=== PATIENT | female | born 1975 | race Caucasian/White ===

== ENCOUNTER 2020-06-04 08:06 | Day surgery (SDC) | payer SELFPAY ==
[~2020-06-04] VITALS: Ht 165 cm; Wt 49.0 kg
[2020-06-04] MEDS ORDERED: LIDOCAINE 1% INJ 20 ML 20 ML VIAL ONE (08:11)
[2020-06-04 08:24] VITALS: BP 112/70
--- NOTE | 2020-06-04 09:41 | Cardiac Procedure Note-CS/ASA ---
Pre-Procedure Note Pre-Op Procedure Note H&P Reviewed The H&P was reviewed, patient examined and no changes noted. Date H&P Reviewed: Jun 04, 2020 Time H&P Reviewed: 09:30 Conscious Sedation Pre-Proced Time 09:30 ASA Score 2 For ASA 3 and 4: Consider anesthesia and medical clearance. Also, for patients with a history of failed moderate sedation consider anesthesia. Airway Lungs Heart ASA score ASA 1: a normal healthy patient ASA 2: a patient with a mild systemic disease (mid diabetes, controlled hypertension, obesity ASA 3: a patient with a severe systemic disease that limits activity (angina, COPD, prior Myocardial infarction) ASA 4: a patient with an incapacitating disease that is a constant threat to life (CHF, renal failure) ASA 5: a moribund patient not expected to survive 24 hrs. (ruptured aneurysm) ASA 6: a declared brain- patient whose organs are being harvested. For emergent operations, add the letter E after the classification Mallampati Classification Grade 1 Sedation Plan Analgesia, Amnesia, Plan communicated to team members, Discussed options with patient/fam, Discussed risks with patient/fam The patient is an appropriate candidate to undergo the planned procedure, sedation, and anesthesia. The patient immediately re-assessed prior to indication. TAYLOR MCGARRY MD FACP FAC CCDS Jun 04, 2020 09:41
--- NOTE | 2020-06-04 10:49 | OPERATIVE REPORT ---
DATE OF SERVICE: 06/04/2020 PREOPERATIVE DIAGNOSIS: Palpitations. POSTOPERATIVE DIAGNOSIS: Palpitations. PROCEDURE: Implantable loop recorder implantation. INDICATIONS: The patient is a 44-year-old lady, who has been experiencing palpitations that are quite bothersome to her, but are infrequent. Implantable loop recorder implantation was carried out after having obtained an informed consent. DESCRIPTION OF PROCEDURE: She was brought to the heart center. The left prepectoral area was prepared and draped in the usual sterile fashion. Lidocaine 1% was used for local anesthesia. The tools provided with the [employer] implantable Reveal LINQ device were used to make a pocket anterior to the fourth intercostal space into which the device was placed and the wound edges were closed using Dermabond and Steri-Strips. She tolerated the procedure well. The device is a Medtronic Reveal LINQ with serial# [id number]. Job ID: [id number] DocumentID: [id number] Dictated Date: 06/04/2020 09:47:38 Golf Course Starter Date: 06/04/2020 10:49:08 Dictated By: TAYLOR MCGARRY MD, MA, FACP, FACC,
== END 2020-06-04 09:55 | disposition home or self-care (01) ==
LOC: CATH 08:06
PROVIDERS: ATTEND Internal Medicine Cardiovascular Disease
DX: R00.2 Palpitations (principal); R07.89 Other chest pain; R94.31 Abnormal electrocardiogram [ECG] [EKG]; Z79.82 Long term (current) use of aspirin; F17.210 Nicotine dependence, cigarettes, uncomplicated
CPT/HCPCS: 33285; C1764

== ENCOUNTER → 2020-06-25 | Outpatient (CLI) | payer OTHER ==
[~2020-06-25] VITALS: Ht 165 cm; Wt 49.0 kg
[~2020-06-25] MED LIST: REGADENOSON 0.4 MG/5 ML SYR (LEXISCAN) IV ONE
[2020-06-25] MEDS: CATHETER FLUSH 10 ML SYR IV PRN ×2 (11:16→12:59)
[2020-06-25 12:58] VITALS: BP 94/55
--- NOTE | 2020-06-26 17:33 | STRESS TEST ---
DATE OF SERVICE: 06/25/2020 RESTING AND POST REGADENOSON TECHNETIUM-99M TETROFOSMIN SPECT CT IMAGING ORDERING PHYSICIAN: Dr. Arguello. PRIMARY PHYSICIAN: ÁNGEL Reynolds. CLINICAL DIAGNOSIS: Chest discomfort. Baseline images were carried out after injection of 10.07 mCi of technetium-99m Tetrofosmin. This was followed by 0.4 mg regadenoson and 29.7 mCi of technetium-99m Tetrofosmin for stress imaging. The electrocardiogram showed sinus rhythm at baseline. It did not change significantly with regadenoson infusion. The patient tolerated the procedure well. Review of images at rest and following stress does not indicate any evidence of myocardial ischemia or infarction. Gated images show normal global left ventricular systolic function with normal regional wall motion. Left ventricular ejection fraction is calculated to be 54%. Left ventricular end diastolic volume is 71 mL. TID is absent (1.09). CONCLUSIONS: 1. No evidence of any significant myocardial ischemia or infarction on this study. 2. Normal regional wall motion. 3. Normal global left ventricular systolic function with a calculated ejection fraction of 54%. Job ID: [id number] DocumentID: [id number] Dictated Date: 06/26/2020 15:56:39 Dog Boarder Date: 06/26/2020 17:32:24 Dictated By: TAYLOR ARGUELLO MD, MA, FACP, FACC,
== END ==
LOC: CARD 10:09
PROVIDERS: ATTEND Internal Medicine Cardiovascular Disease
DX: R07.89 Other chest pain (principal); R00.2 Palpitations; Z72.0 Tobacco use
CPT/HCPCS: 78452; 93017; 93306; A9502

== ENCOUNTER → 2023-01-29 | Outpatient (CLI) | payer MEDICAID, OTHER ==
[~2023-01-29] MED LIST changes: +CATHETER FLUSH 10 ML SYR IVP PRN
[2023-01-29 09:47] VITALS: BP 94/75
--- NOTE | 2023-01-30 22:15 | STRESS TEST ---
DATE OF SERVICE: 01/29/2023 RESTING AND POST REGADENOSON TECHNETIUM-99M TETROFOSMIN SPECT CT IMAGING CLINICAL DIAGNOSIS: Near syncope. Baseline images were carried out after injection of 10.37 mCi of technetium-99m tetrofosmin. This was followed by 0.4 mg regadenoson and 30 mCi of technetium-99m tetrofosmin for stress imaging. The electrocardiogram showed sinus rhythm at baseline. It did not change significantly with regadenoson infusion. The patient tolerated the procedure well. Review of images at rest and following stress does not indicate any significant perfusion defects consistent with myocardial ischemia or infarction. Gated images show normal global left ventricular systolic function with normal regional wall motion. Left ventricular ejection fraction calculated to be 56%. CONCLUSIONS: 1. No evidence of any significant myocardial ischemia or infarction on this study. 2. Normal regional wall motion. 3. Normal global left ventricular systolic function with a calculated ejection fraction of 56%. Job ID: [id number] DocumentID: [id number] Dictated Date: 01/30/2023 17:29:41 Heavy Threader Date: 01/30/2023 22:14:00 Dictated By: TAYLOR MCGARRY MD; JOSEP; FACP; FACC;
== END ==
LOC: CARD 08:11
PROVIDERS: ATTEND Internal Medicine Cardiovascular Disease
DX: R55 Syncope and collapse (principal)
CPT/HCPCS: 78452; 93017; A9502